=== PATIENT | male | born 1990 | race Two or more races ===

== ENCOUNTER 2025-09-16 07:14 | Emergency (ER) | payer MEDICAID ==
[~2025-09-16] VITALS: Ht 182.9 cm; Wt 68.0 kg
[~2025-09-16 07:14] MED LIST: DOCU100T PO; LEVO750T68 MT; PREG100C PO; SENN-362 PO; SULF1TAB48 MT
[2025-09-16 07:16] VITALS: O2SAT 100
[2025-09-16] MEDS: LABETALOL 5MG/ML 4ML INJ IV ONE (07:30)
[2025-09-16] MEDS: METOCLOPRAMIDE HCL 10MG/2ML VIAL IV ONE (07:30)
[2025-09-16] MEDS: ACETAMINOPHEN 1000MG/100ML 100 ML IV ONE (07:30)
[2025-09-16 08:27] LABS: BASOPHILS % 0.3 % (0.0-2.0); EOSINOPHILS % 3.4 % (0.0-5.0); HEMATOCRIT. 47.5 % (42.0-52.0); HEMOGLOBIN. 15.8 g/dL (14.0-18.0); LYMPHOCYTES % 39.7 % (20.0-50.0); MEAN PLATELET VOLUME 9.6 fl (7.4-10.4); MONOCYTES % 6.9 % (2.0-8.0); NEUTROPHILS % 49.7 % (40.0-76.0); PLATELET 223 x1000/uL (130-400); RED BLOOD CELL COUNT 5.55 mill/uL (4.7-6.1); RED CELL DISTRIBUTION WIDTH 15.9 % (11.6-14.6)
[2025-09-16 08:55] LABS: CREATININE 0.6 mg/dL (0.6-1.3)
[2025-09-16 08:56] LABS: UREA NITROGEN BLOOD < 5 mg/dL (9-23)
[2025-09-16 08:57] LABS: ASPARTATE AMINOTRANSFERASE 13 IU/L (<34)
[2025-09-16 08:58] LABS: BILIRUBIN TOTAL 0.5 mg/dL (0.1-1.0); PROTEIN TOTAL 7.8 g/dL (6.0-8.3)
[2025-09-16 09:11] LABS: TROPONIN I HIGH SENSITIVITY 326 ng/L (3.0-53)
[2025-09-16] MEDS: ASPIRIN 325MG TABLET PO ONE (10:44)
[2025-09-16] MEDS: ENOXAPARIN 60MG/0.6ML SYR SUBCUT ONE (10:44)
[2025-09-16 14:45] VITALS: BP 92/60; PULSE 74; RESP 16; TEMP 36.8; O2SAT 95
== END 2025-09-16 15:00 | disposition home or self-care (01) ==
LOC: ER 07:14 → CMPBEDREQ 09-17 08:01
DX: I21.4 Non-ST elevation (NSTEMI) myocardial infarction (principal); G82.50 Quadriplegia, unspecified
CPT/HCPCS: 80053; 85025; 84484; 36415; 71045; 70450; 93005; 96372; 99285; J1650; Z7610; A4606; J0131